=== PATIENT | female | born 1960 | race Caucasian/White ===

== ENCOUNTER → 2018-01-30 | Outpatient (CLI) | payer OTHER ==
--- NOTE | 2018-01-30 17:20 | DIAGNOSTIC IMAGING REPORT ---
THYROID ULTRASOUND HISTORY: RT THYROID NODULE COMPARISON: None. FINDINGS: Right lobe: 5.4 x 1.5 x 1.8 cm. There is an 8 x 7 x 5 mm cystic nodule at the lower pole. Left lobe: 3.8 x 1.8 x 1.1 cm. There is an 8 x 9 x 5 mm cystic nodule within the lower pole. There is also 3 mm upper pole cyst. Isthmus: 2 mm in thickness. No nodules. Miscellaneous: At the patient's palpable abnormality within the right neck base there is a 9 x 4 x 8 mm hypoechoic nodule. This favors a small lymph node. IMPRESSION: 1. A few subcentimeter cystic nodules within the thyroid gland. These do not meet sonographic criteria for biopsy. 2. At the patient's questioned palpable abnormality within the right neck base there is a 9 x 4 x 8 mm hypoechoic nodule. This favors a small lymph node. This does not meet sonographic criteria for pathology. However, if this continues to increase in size, then ultrasound guided fine aspiration can be performed for further evaluation. Electronically signed by: Kanu Fay M.D. 01/30/2018 5:19 PM Dictated Date/Time: 01/30/2018 5:16 PM
== END | disposition home or self-care (01) ==
LOC: C.ULTR 15:41
PROVIDERS: ATTEND Physician Assistant
DX: E04.1 Nontoxic single thyroid nodule (principal)